=== PATIENT | female | born 2000 | race Caucasian/White ===

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

== ENCOUNTER 2022-01-05 03:29 | Outpatient (CLI) | payer MEDICAID, SELFPAY ==
[2022-01-06 15:04] LABS: Hemoglobin S Screen Negative (Negative)
== END 2022-01-05 03:30 | disposition home or self-care (01) ==
PROVIDERS: PCP Nurse Practitioner Family; Visit Provider Nurse Practitioner Family
DX: Z13.0 Encounter for screening for diseases of the blood and blood-forming organs and certain disorders involving the immune mechanism (principal)
CPT/HCPCS: 36415; 85660

== ENCOUNTER 2022-03-06 15:25 | Emergency (ER) | payer MEDICAID, SELFPAY ==
[2022-03-06 15:30] VITALS: BP 124/74; PULSE 92; RESP 18; TEMP 37; O2SAT 98
--- NOTE | 2022-03-06 15:44 | ED.GENADUL_ITS ---
Discharge Plan Disposition Patient Disposition: Home Condition: Improving Discharge Details Clinical Impression: Nausea & vomiting Primary Care Provider: Becca Orellana ED Provider: Sancho Hinkle Home Meds and New Rx's Prescriptions: New ondansetron 4 mg tablet,disintegrating 4 mg PO TID PRN3 Days Qty: 10 0RF Discharge Instructions Instructions: Acute Nausea and Vomiting (ED) Additional Instructions: Laboratory values do not reveal any obvious emergent process. Zofran as directed. Clear liquid diet, advance as tolerated. Please watch for new or worsening symptoms and return to the ER for any concerns. Lastly, I recommend contacting your primary care provider tomorrow to discuss your ER visit, ongoing symptoms, and need for further outpatient work-up. Medical Decision Making 21-year-old female with no significant past medical history reports nausea over the past 2 weeks with intermittent vomiting, no pain whatsoever. No change of appetite. Reports her last menstrual cycle ended yesterday. Clinically she appears well, nontoxic. Plan to obtain IV access, routine screening laboratory values, , urinalysis, give IV Zofran. Abdomen is soft, nontender, nonsurgical Laboratory values do not reveal any obvious emergent process. Upon reevaluation patient reports that the Zofran has resolved her symptoms completely. No vomiting under my care. At this time I see no indication for further work-up such as CT imaging. We will provide prescription for Zofran and recommend primary care follow-up. Standard discharge and return precautions were provided. Patient understands, is agreeable to this plan, and has no additional questions or concerns upon discharge. This documentation was generated using [employer] dictation system, please disregard any oddities of phrase or misspellings. Medical Records Medical records reviewed: Yes I reviewed the patient's medical records. Lab Data Lab results reviewed: Yes I reviewed the patient's lab results. Labs: Laboratory Tests Range/Units 03/06/22 03/06/22 03/06/22 15:36 15:36 16:03 WBC (4.4-10.8) 10^3/uL RBC (3.93-5.22) 10^6/uL Hgb (11.2-15.7) g/dL Hct (36.0-46.0) % MCV (80-95) fL MCH (27.0-33.0) pg MCHC (32.0-36.0) % RDW (11.7-14.6) % Plt Count (130-400) 10^3/uL MPV (8.0-11.0) fL Immature Gran % Neutrophils % Lymphocytes % Monocytes % Eosinophils % Basophils % Nucleated RBC % (0.0-0.3) % Absolute Neutrophils (1.2-6.7) 10^3/uL Absolute Lymphocytes (1.2-3.4) 10^3/uL Absolute Monocytes (0.1-0.8) 10^3/uL Absolute Eosinophils (0.0-0.7) 10^3/uL Absolute Basophils (0.0-0.2) 10^3/uL Sodium (136-145) mmol/L 140 Potassium (3.5-5.1) mmol/L 3.5 Chloride (98-107) mmol/L 104 Carbon Dioxide (21.0-32.0) mmol/L 30.9 Anion Gap (3-11) mmol/L 5.1 BUN (7-18) mg/dL 14 Creatinine (0.55-1.02) mg/dL 0.8 Est GFR (CKD-EPI 2020) (mL/min/1.73m2) 108.78 Glucose (74-106) mg/dL 106 Calcium (8.5-10.1) mg/dL 9.0 Total Bilirubin (0.2-1.0) mg/dL 0.2 AST (15-37) U/L 22 ALT (14-59) U/L 28 Alkaline Phosphatase (46-116) U/L 117 H Total Protein (6.4-8.2) g/dL 7.8 Albumin (3.4-5.0) g/dL 3.8 Lipase (73-393) U/L 88 Urine Color (Yellow) Yellow Urine Clarity (Clear) Clear Urine pH (5-8) 7.0 Ur Specific [place] (1.005-1.025) 1.020 Urine Protein (Negative) mg/dL Negative Urine Ketones (Negative) mg/dL Negative Urine Blood (Negative) Small H Urine Nitrite (Negative) Negative Urine Bilirubin (Negative) Negative Urine Urobilinogen (Up TO 0.2) EU/dL 0.2 Ur Leukocyte Esterase (Negative) Negative Urine RBC (0-2) HPF 0-2 Urine WBC (0-5) HPF 0-2 Ur Epithelial Cells (Negative) HPF Moderate Urine Crystals (Negative) HPF Moderate Amorphous Urine Bacteria (Negative) HPF Rare Urine Mucus (Negative) Negative Ur Culture Indicated? No Urine Glucose (Negative) mg/dL Negative Urine Opiates Screen (Negative) Negative Urine Methadone Screen (Negative) Negative Ur Barbiturates Screen (Negative) Negative Ur Tricyclics Screen (Negative) Negative Ur Amphetamines Screen (Negative) Negative U Benzodiazepines Scrn (Negative) Negative Urine Cocaine Screen (Negative) Negative Ur THC Screen (Negative) Negative Range/Units 03/06/22 16:03 WBC (4.4-10.8) 10^3/uL 7.78 RBC (3.93-5.22) 10^6/uL 4.76 Hgb (11.2-15.7) g/dL 13.4 Hct (36.0-46.0) % 40.7 MCV (80-95) fL 86 MCH (27.0-33.0) pg 28.2 MCHC (32.0-36.0) % 32.9 RDW (11.7-14.6) % 12.2 Plt Count (130-400) 10^3/uL 337 MPV (8.0-11.0) fL 9.0 Immature Gran % 0.3 Neutrophils % 63.2 Lymphocytes % 26.3 Monocytes % 8.4 Eosinophils % 1.4 Basophils % 0.4 Nucleated RBC % (0.0-0.3) % 0.0 Absolute Neutrophils (1.2-6.7) 10^3/uL 4.92 Absolute Lymphocytes (1.2-3.4) 10^3/uL 2.05 Absolute Monocytes (0.1-0.8) 10^3/uL 0.65 Absolute Eosinophils (0.0-0.7) 10^3/uL 0.11 Absolute Basophils (0.0-0.2) 10^3/uL 0.03 Sodium (136-145) mmol/L Potassium (3.5-5.1) mmol/L Chloride (98-107) mmol/L Carbon Dioxide (21.0-32.0) mmol/L Anion Gap (3-11) mmol/L BUN (7-18) mg/dL Creatinine (0.55-1.02) mg/dL Est GFR (CKD-EPI 2020) (mL/min/1.73m2) Glucose (74-106) mg/dL Calcium (8.5-10.1) mg/dL Total Bilirubin (0.2-1.0) mg/dL AST (15-37) U/L ALT (14-59) U/L Alkaline Phosphatase (46-116) U/L Total Protein (6.4-8.2) g/dL Albumin (3.4-5.0) g/dL Lipase (73-393) U/L Urine Color (Yellow) Urine Clarity (Clear) Urine pH (5-8) Ur Specific [place] (1.005-1.025) Urine Protein (Negative) mg/dL Urine Ketones (Negative) mg/dL Urine Blood (Negative) Urine Nitrite (Negative) Urine Bilirubin (Negative) Urine Urobilinogen (Up TO 0.2) EU/dL Ur Leukocyte Esterase (Negative) Urine RBC (0-2) HPF Urine WBC (0-5) HPF Ur Epithelial Cells (Negative) HPF Urine Crystals (Negative) HPF Urine Bacteria (Negative) HPF Urine Mucus (Negative) Ur Culture Indicated? Urine Glucose (Negative) mg/dL Urine Opiates Screen (Negative) Urine Methadone Screen (Negative) Ur Barbiturates Screen (Negative) Ur Tricyclics Screen (Negative) Ur Amphetamines Screen (Negative) U Benzodiazepines Scrn (Negative) Urine Cocaine Screen (Negative) Ur THC Screen (Negative) HPI General Mode of arrival: ambulatory . Date/Time Provider Initiated Documentation: 03/06/22 15:41 . Limitations to Documentation: no limitations . Information obtained by: patient and family . HPI Narrative: This is a 21-year-old female who reports nausea over the past 2 weeks initially intermittent but now more steady, associated with random vomiting. Patient denies any other symptoms. Denies recent illness or trauma. Denies fever, headache, neck pain, chest pain, shortness of breath, abdominal pain, change of appetite, diarrhea, constipation, dysuria, hematuria, abnormal vaginal bleeding or discharge. Reports that her last menstrual cycle ended yesterday and was normal. Patient reports last eating a few hours ago, [place] dinner leftovers. Denies recent sick contacts. She denies smoking cigarettes, drug use, specifically marijuana. Reports occasional has alcohol, most recently last week, 2 beers. Related Data Home Medications Medication Instructions Recorded Confirmed ondansetron 4 mg disintegrating 4 mg PO TID PRN 3 days #10 tabs 03/06/22 tablet Previous Rx's Medication Instructions Recorded ondansetron 4 mg disintegrating 4 mg PO TID PRN 3 days #10 tabs 03/06/22 tablet Allergies Allergy/AdvReac Type Severity Reaction Status Date / Time No Known Allergies Allergy Verified 12/27/21 12:54 General Stated Complaint: Nausea/Vomit/Diar TAVARES: 3 Review of Systems Constitutional Constitutional: Denies fatigue, Denies fever(s), Denies headache(s) and Denies weakness ENT Ears, Nose, Mouth, and Throat: Denies headache(s) and Denies neck pain Cardiovascular Cardiovascular: Denies chest pain and Denies dyspnea Respiratory Respiratory: Denies cough and Denies dyspnea Gastrointestinal Gastrointestinal: Denies abdominal pain, Denies constipation, Denies diarrhea, Reports nausea and Reports vomiting Genitourinary Genitourinary: Denies abnormal vaginal bleeding, Denies dysuria and Denies vaginal discharge Musculoskeletal Musculoskeletal: Denies back pain and Denies neck pain Integumentary/Breasts Skin/Breast: Denies rash Neurologic Neurologic: Denies headache(s) and Denies weakness Endocrine Endocrine: Denies fatigue PFSH All Active Problems (Updated 03/06/22 @ 16:41 by DEAN Davila) Nausea & vomiting (Acute) Medical History Calculus of left kidney (03/2021) Surgical History No significant past surgical history Family History Mother Diabetes Hypertension Father No problems noted. Sister No problems noted. Sister No problems noted. Maternal Grandfather Alcohol use disorder Maternal Grandmother Alcohol use disorder Paternal Grandfather No problems noted. Paternal Grandmother No problems noted. Social History Smoking/Tobacco Use Status: Never Smoking risk assessment performed?: Yes Alcohol Intake: current Alcohol Intake frequency: a few times a month Alcohol type: beer Drug use: Never Substance use type: does not use Household members: significant other Housing: house Do you need help understanding health information?: Rarely Pets and animals: Yes Pets and animals: cat(s) Sexually active: Yes Do you think of yourself as: straight/heterosexual Current gender identity: female What is your relationship status?: living with partner How often do you talk on the phone with friends or family?: three or more times per week How often do you get together with friends or relatives?: twice per week How often do you attend tenriism or episcopalian services?: 1-3 times per year Do you belong to any clubs or organized social groups?: no Panel score (0-1 are the most socially isolated patients): 2 What type of physical activity do you participate in: aerobic, weight lifting and running Duration: 30-45 minutes/day Frequency: 3-4 times per week Cristela/Anglican: No preference Do you feel safe at home: Yes Do you feel safe in your relationship?: Yes Female Reproductive History Menstrual control method: natural family planning and condoms History History 0 Para Hx # Term Pregnancies Multiple births Hx # Pregnancies Ectopic pregnancies AB induced Hx Number of Living Children AB spontaneous Exam Const General: cooperative, healthy appearing, comfortable and no acute distress Orientation: alert and awake HENDE Head: normal to inspection, normocephalic and atraumatic Face and sinus: normal facial exam Mouth: moist mucous membranes Eyes Conjunctivae: conjunctivae normal Neck Neck: normal visual inspection, full ROM, no meningeal signs, trachea midline and supple Resp Effort & Inspection: normal respiratory effort and able to speak in complete sentences Auscultation: clear to auscultation bilaterally Cardio Rate: regular rate Rhythm: regular rhythm GI Inspection: normal to inspection Palpation: soft, not firm, no guarding, no pulsatile masses and nontender Auscultation: normal bowel sounds Back/Spine/Pelvis Back: no CVA tenderness and No back tenderness Skin General skin exam: no rashes or lesions noted Neuro General: patient alert, patient awake, moves all extremities and no focal motor deficits Cognition: normal cognition Speech: speech normal Gait: normal gait Motor: muscle tone normal throughout Sensory Exam: no sensory deficits noted Extrem General: normal to inspection, full ROM and capillary refill normal Psych Appearance: grossly normal Mental Status: mental status grossly normal Course Vital Signs Vital signs: Vital Signs Temperature 37.0 C 03/06/22 15:30 Pulse 92 H 03/06/22 15:30 Respiratory Rate 18 03/06/22 15:30 Blood Pressure 124/74 03/06/22 15:30 Pulse Oximetry 98 03/06/22 15:30 Temperature 37.0 C 03/06/22 15:30 Temperature Source Tympanic 03/06/22 15:30 Pulse 92 H 03/06/22 15:30 Respiratory Rate 18 03/06/22 15:30 Respiratory Effort 03/06/22 15:32 Blood Pressure 124/74 03/06/22 15:30 Blood Pressure Position Supine 03/06/22 15:30 Pulse Oximetry 98 03/06/22 15:30 Oxygen Delivery Method Room Air 03/06/22 15:30 Oxygen Flow Rate 0 03/06/22 15:30 Pain Level 0 03/06/22 15:30 Lab/Test Results Lab/Test Results: POC- Test(urine) Negative PAWSS Have you Been Recently Intoxicated or Drunk Within the Last 30 days?: No Have you Ever Experienced Previous Episodes of Alcohol Withdrawal?: No Have you ever Experienced Withdrawal Seizures?: No Have you ever Experienced Delirium Tremens(DT)s?: No Have you ever undergone Alcohol Rehabilitation Treatment (i.e, inpt ot outpatient treatment programs)?: No Have you ever Experienced Blackouts?: No Have you ever Combined Alcohol with other Downers within the last 90 days?: No Have you ever Combined Alcohol with any other Substance of Abuse during the last 90 days?: No Positive Blood Alcohol level on Presentation? [PCS.BAL]: No Evidence of Increased Autonomic Activity (i.e. HR>120, tremor, sweating, agitation, nausea)?: No Result: 0
[2022-03-06 15:46] LABS: Bilirubin Negative (Negative); Blood Small (Negative); Clarity Clear (Clear); Glucose Negative (Negative); Ketones Negative (Negative); Leukocyte Esterase Negative (Negative); Nitrite Negative (Negative); Urobilinogen 0.2 EU/dL (Up TO 0.2)
[2022-03-06 15:54] LABS: RBC 0-2 HPF (0-2); WBC 0-2 HPF (0-5)
[2022-03-06 15:55] LABS: Bacteria Rare HPF (Negative); C & S Indicated? No; Crystals Moderate Amorphous HPF (Negative); Epithelial Cells Moderate HPF (Negative); Mucus Negative (Negative)
[2022-03-06] MEDS: Ondansetron 4 MG/2 ML VIAL IVP (16:10)
[2022-03-06 16:13] LABS: Abs Immature Grans 0.02 10^3/uL (0.0-0.06); Absolute Basophil Count 0.03 10^3/uL (0.0-0.2); Absolute Eosinophil Count 0.11 10^3/uL (0.0-0.7); Absolute Lymphocyte Count 2.05 10^3/uL (1.2-3.4); Absolute Monocyte Count 0.65 10^3/uL (0.1-0.8); Absolute Neutrophil Count 4.92 10^3/uL (1.2-6.7); Basophils % 0.4; Eosinophils % 1.4; HCT 40.7 % (36.0-46.0); HGB 13.4 g/dL (11.2-15.7); Immature Grans % 0.3; Lymphocytes % 26.3; MCH 28.2 pg (27.0-33.0); MCHC 32.9 % (32.0-36.0); MCV 86 fL (80-95); Monocytes % 8.4; Neutrophils % 63.2; Platelet Count 337 10^3/uL (130-400); RBC 4.76 10^6/uL (3.93-5.22); RDW 12.2 % (11.7-14.6); RDW-SD 38.2 fL; WBC 7.78 10^3/uL (4.4-10.8)
[2022-03-06 16:18] LABS: *AMPHETAMINES SCREEN URINE Negative (Negative); *BARBITURATES SCREEN URINE Negative (Negative); *BENZODIAZEPINES SCREEN URINE Negative (Negative); Cannabinoids THC Negative (Negative); Cocaine Screen,Urine Negative (Negative); METHADONE URINE SCREEN Negative (Negative); OPIATES URINE SCREEN Negative (Negative)
[2022-03-06 16:21] LABS: Tricyclic Antidepressants Negative (Negative)
[2022-03-06 16:31] LABS: ALT 28 U/L (14-59); AST 22 U/L (15-37); Albumin 3.8 g/dL (3.4-5.0); Alkaline Phosphatase 117 U/L (46-116); Anion Gap 5.1 mmol/L (3-11); BUN 14 mg/dL (7-18); Bilirubin, Total 0.2 mg/dL (0.2-1.0); CO2 30.9 mmol/L (21.0-32.0); CREATININE 0.8 mg/dL (0.55-1.02); Chloride 104 mmol/L (98-107); Estimated GFR 108.78 (mL/min/1.73m2); Glucose 106 mg/dL (74-106); Lipase 88 U/L (73-393); Potassium 3.5 mmol/L (3.5-5.1); Sodium 140 mmol/L (136-145); Total Protein 7.8 g/dL (6.4-8.2)
[2022-03-06 17:00] VITALS: BP 109/70; PULSE 75; RESP 18; O2SAT 97
== END 2022-03-06 17:01 | disposition home or self-care (01) ==
PROVIDERS: Emergency Provider Physician Assistant; PCP Nurse Practitioner Family
DX: R11.2 Nausea with vomiting, unspecified (principal); Z87.442 Personal history of urinary calculi
CPT/HCPCS: 36415; 80053; 80307; 81025; 83690; 96374; 99284; 81003; 81015; 85025; J2405

== ENCOUNTER 2024-04-08 09:06 | Outpatient (REF) | payer MEDICAID, SELFPAY ==
--- NOTE | 2024-04-08 08:30 | PAPFT_PTH ---
PATIENT: Edilia Brewer LOC: [facility] U#:[id number] AGE/SX: 23/F ROOM: RE04/08/[address]: SEAN Flores : 2000 BED: DIS: 04/08/2024 SPEC #: [id number] RECD: 04/08/24 12:56 STATUS: NISHA BENEDICT #: [id number] XAVIER: 04/08/24 08:[address]: Becca Orellana DEPT: [facility] Cytology RECD BY: Theresa Montejo Tissues: 1 - CX/ENDOCX FOR PAP SMEARS Procedures: PAP THIN PREP/[facility] Screening Comments: [id number] (CHLAMYDIA/GC)
[2024-04-09 13:05] LABS: Chlamydia Result Negative (Negative); GC Result Negative (Negative)
== END 2024-04-08 09:07 | disposition home or self-care (01) ==
LOC: LBN 09:06
PROVIDERS: PCP Nurse Practitioner Family; Visit Provider Nurse Practitioner Family
DX: Z12.4 Encounter for screening for malignant neoplasm of cervix (principal); Z11.3 Encounter for screening for infections with a predominantly sexual mode of transmission
CPT/HCPCS: 87491; 87591; 88142

== ENCOUNTER 2024-07-22 10:36 | Outpatient (REF) | payer MEDICAID, SELFPAY | END 2024-07-22 10:37 | disposition home or self-care (01) | LOC: LBN 10:36 | PROVIDERS: PCP Nurse Practitioner Family; Visit Provider Nurse Practitioner Family | DX: J02.9 Acute pharyngitis, unspecified (principal) | CPT/HCPCS: 87070 ==

== ENCOUNTER 2024-09-03 16:28 | Outpatient (CLI) | payer MEDICAID, SELFPAY ==
[2024-09-05 13:58] LABS: TB Interpretation Negative (Negative); TB1 Ag minus Nil 0.03 IU/mL; TB2 Ag minus Nil 0.02 IU/mL
== END 2024-09-03 16:29 | disposition home or self-care (01) ==
LOC: LBO 16:28
PROVIDERS: PCP Nurse Practitioner Family; Visit Provider Nurse Practitioner Family
DX: Z00.00 Encounter for general adult medical examination without abnormal findings (principal)
CPT/HCPCS: 36415; 86480